=== PATIENT | female | born 1980 | race Caucasian/White ===

== ENCOUNTER 2019-04-22 00:58 | Emergency (ER) | payer MEDICAID, OTHER ==
[~2019-04-22] VITALS: Ht 162.6 cm; Wt 82.0 kg
[~2019-04-22 00:58] MED LIST: FOR HTN
[2019-04-22 01:49] LABS: BASOPHILS % 0.3 % (0.0-2.0); EOSINOPHILS % 0.4 % (0.0-5.0); HEMATOCRIT. 37.8 % (36.0-48.0); HEMOGLOBIN. 13.2 g/dL (12.0-16.0); LYMPHOCYTES % 12.2 % (20.0-50.0); MEAN CORPUSCULAR VOLUME 86.1 fL (81.0-99.0); MEAN PLATELET VOLUME 7.6 fl (7.4-10.4); NEUTROPHILS % 80.1 % (40.0-76.0); PLATELET 302 x1000/uL (130-400); RED BLOOD CELL COUNT 4.39 mill/uL (4.2-5.4); RED CELL DISTRIBUTION WIDTH 13.1 % (11.6-14.6)
[2019-04-22 01:54] LABS: CHLORIDE 106 mEq/L (98-107)
[2019-04-22 01:59] LABS: PROTHROMBIN TIME 10.3 sec (9.6-11.0)
[2019-04-22 02:10] LABS: CLARITY URINE CLEAR (CLEAR); COLOR URINE YELLOW (YELLOW); KETONES URINE NEGATIVE (NEGATIVE); LEUKOCYTE ESTERASE URINE NEGATIVE (NEGATIVE); NITRITE URINE NEGATIVE (NEGATIVE); OCCULT BLOOD URINE NEGATIVE (NEGATIVE); PROTEIN URINE NEGATIVE (NEGATIVE); SPECIFIC GRAVITY URINE 1.009 (1.005-1.030); UROBILINOGEN URINE 0.2 E.U./dL (0.2-1.0)
[2019-04-22] MEDS ORDERED: LORAZEPAM 2MG/ML CPJ IV ONE (03:30)
[2019-04-22] MEDS ORDERED: ONDANSETRON HCL 4MG/2ML INJ IV ONE (03:30)
[2019-04-22] MEDS ORDERED: LORAZEPAM 2MG/ML CPJ ONE (03:48)
[2019-04-22 07:00] VITALS: BP 106/69
== END 2019-04-22 07:26 | disposition home or self-care (01) ==
LOC: ER 01:08
DX: F41.9 Anxiety disorder, unspecified (principal); R11.2 Nausea with vomiting, unspecified; R10.13 Epigastric pain; R42 Dizziness and giddiness; E78.00 Pure hypercholesterolemia, unspecified
CPT/HCPCS: 36415; 80053; 81003; 81025; 83690; 85025; 85610; 96374; 96375; 99283; J2060; J2405; Z7610

== ENCOUNTER 2020-05-30 03:02 | Emergency (ER) | payer MEDICAID ==
[~2020-05-30] VITALS: Ht 165.1 cm; Wt 69.0 kg
[2020-05-30] MEDS ORDERED: ASPIRIN 81MG TABLET PO ONE (03:30)
[2020-05-30] MEDS: NITROGLYCERIN 0.4MG TABLET SL SL PRN ×3 (03:46→03:56)
[2020-05-30 03:47] LABS: BASOPHILS % 0.5 % (0.0-2.0); EOSINOPHILS % 1.8 % (0.0-5.0); HEMATOCRIT. 40.5 % (36.0-48.0); HEMOGLOBIN. 13.9 g/dL (12.0-16.0); LYMPHOCYTES % 33.8 % (20.0-50.0); MEAN CORPUSCULAR HEMOGLOBIN 29.8 pg (28.0-32.0); MEAN CORPUSCULAR VOLUME 87.1 fL (81.0-99.0); MEAN PLATELET VOLUME 7.7 fl (7.4-10.4); MONOCYTES % 6.9 % (2.0-8.0); PLATELET 334 x1000/uL (130-400); RED BLOOD CELL COUNT 4.65 mill/uL (4.2-5.4); RED CELL DISTRIBUTION WIDTH 13.2 % (11.6-14.6)
[2020-05-30 03:49] LABS: CHLORIDE 105 mEq/L (98-107)
[2020-05-30 03:53] LABS: ETHANOL BLOOD < 10 mg/dL
[2020-05-30 04:21] LABS: *BARBITURATES SCREEN URINE NEGATIVE (NEGATIVE); CANNABINOID URINE SCREEN NEGATIVE (NEGATIVE); METHADONE URINE SCREEN NEGATIVE (NEGATIVE); OPIATES URINE SCREEN NEGATIVE (NEGATIVE); PHENCYCLIDINE URINE SCREEN NEGATIVE (NEGATIVE)
[2020-05-30 04:22] LABS: *AMPHETAMINES SCREEN URINE NEGATIVE (NEGATIVE); *BENZODIAZEPINES SCREEN URINE NEGATIVE (NEGATIVE); *COCAINE SCREEN URINE NEGATIVE (NEGATIVE)
[2020-05-30 04:45] VITALS: BP 129/79
== END 2020-05-30 05:01 | disposition home or self-care (01) ==
LOC: ER 03:02
DX: R07.89 Other chest pain (principal); F41.9 Anxiety disorder, unspecified
CPT/HCPCS: 36415; 71045; 80053; 80305; 80320; 81025; 83880; 84484; 85025; 93005; 99285; Z7610; G0480

== ENCOUNTER 2020-06-08 17:35 | Emergency (ER) | payer MEDICAID | END 2020-06-08 18:24 | disposition left against medical advice (07) | LOC: ER 17:35 | DX: Z53.21 Procedure and treatment not carried out due to patient leaving prior to being seen by health care provider (principal) ==

== ENCOUNTER 2020-06-14 20:42 | Emergency (ER) | payer MEDICAID ==
[~2020-06-14] VITALS: Ht 162.6 cm; Wt 68.0 kg
[2020-06-14] MEDS ORDERED: MAGNESIUM/ALUMINUM HYDROXIDE/SIMETHICONE 30ML UDC PO STA (21:56)
[2020-06-14] MEDS ORDERED: VISCOUS LIDOCAINE 2% 15 ML UDC PO STA (21:56)
[2020-06-15 00:21] LABS: CHLORIDE 104 mEq/L (98-107)
[2020-06-15 00:23] LABS: BASOPHILS % 0.2 % (0.0-2.0); HEMATOCRIT. 41.8 % (36.0-48.0); HEMOGLOBIN. 14.2 g/dL (12.0-16.0); LYMPHOCYTES % 17.4 % (20.0-50.0); MEAN CORPUSCULAR HEMOGLOBIN 29.1 pg (28.0-32.0); MEAN CORPUSCULAR VOLUME 85.4 fL (81.0-99.0); MEAN PLATELET VOLUME 8.3 fl (7.4-10.4); MONOCYTES % 6.2 % (2.0-8.0); NEUTROPHILS % 76.2 % (40.0-76.0); PLATELET 246 x1000/uL (130-400); RED BLOOD CELL COUNT 4.89 mill/uL (4.2-5.4)
[2020-06-15 00:30] LABS: HCG SCREEN NEGATIVE
[2020-06-15] MEDS ORDERED: MORPHINE SULFATE 4 MG/ML CPJ (NOT FOR IM USE) IV ONE ×2 (00:30→02:45)
[2020-06-15] MEDS ORDERED: ONDANSETRON HCL 4MG/2ML INJ IV ONE (00:30)
[2020-06-15 00:33] LABS: PROTHROMBIN TIME 10.9 sec (9.6-11.0)
[2020-06-15] MEDS ORDERED: ONDANSETRON HCL 4MG/2ML INJ IM ONE (02:45)
[2020-06-15] MEDS ORDERED: DIPHENHYDRAMINE 25MG CAPSULE PO ONE (05:00)
[2020-06-15] MEDS ORDERED: METOCLOPRAMIDE HCL 10MG/2ML VIAL IV ONE (05:00)
[2020-06-15] MEDS ORDERED: SODIUM CHLORIDE 0.9% 1,000 ML IV ONE (07:00)
[2020-06-15 08:54] LABS: CLARITY URINE CLEAR (CLEAR); COLOR URINE DARK YELLOW (YELLOW); KETONES URINE 3+ (NEGATIVE); LEUKOCYTE ESTERASE URINE NEGATIVE (NEGATIVE); NITRITE URINE NEGATIVE (NEGATIVE); OCCULT BLOOD URINE NEGATIVE (NEGATIVE); PROTEIN URINE 2+ (NEGATIVE); SPECIFIC GRAVITY URINE 1.031 (1.005-1.030)
[2020-06-15 09:11] VITALS: BP 133/76
== END 2020-06-15 09:25 | disposition home or self-care (01) ==
LOC: ER 20:42
DX: U07.1 COVID-19 (principal); R10.13 Epigastric pain; R11.2 Nausea with vomiting, unspecified
CPT/HCPCS: 36415; 74018; 74176; 76700; 80053; 81003; 83605; 83690; 84703; 85025; 85610; 96372; 96374; 96375; 96376; 99285; J2270; J2405; J2765; J7030; Q0163; Z7610